=== PATIENT | female | born 1950 | race Two or more races ===

== ENCOUNTER → 2018-03-22 | Outpatient (CLI) | payer MEDICARE, BC ==
[2018-03-22 12:34] LABS: ALBUMIN 3.5 g/dL (3.4-5.0); ALBUMIN/GLOBULIN RATIO 0.9 (1.0-1.7); CALCIUM 9.2 mg/dL (8.5-10.1); GFR 55.3; TOTAL BILIRUBIN 0.5 mg/dL (0.2-1.0); TOTAL PROTEIN 7.2 g/dL (6.4-8.2)
== END | disposition home or self-care (01) ==
LOC: LAB 11:44
PROVIDERS: ATTEND Nurse Practitioner
DX: R06.09 Other forms of dyspnea (principal)
CPT/HCPCS: 36415; 80053; 83880